=== PATIENT | female | born 1930 | race African-American/Black ===

== ENCOUNTER 2016-08-24 16:10 | Emergency (ER) | payer OTHER, MEDICARE, BC ==
[~2016-08-24] VITALS: Ht 167.6 cm; Wt 84.0 kg
[~2016-08-24 16:10] MED LIST: 1-ME1LIQ PO; DONE10TA14 PO; OMEP20TA39 PO; OXYB5TAB PO; TIMO0.5S4 OP; ZIPR20CA PO; ZOLO100T PO
[2016-08-24 16:15] VITALS: BP 202/94; PULSE 79; RESP 20; TEMP 98.7; O2SAT 99
--- NOTE | 2016-08-24 17:23 | PD ---
HPI Chief Complaint: Fall Time Seen by Provider: 17:10 Travel History International Travel<30 days: No Contact w/Intl Traveler<30days: No Traveled to known affect area: No History of Present Illness HPI 86-year-old female presents for evaluation after a fall. She reports that this morning she slipped out of bed and twisted her left ankle. She scooted across the room on her but after this. She denies any head trauma or loss of consciousness. A friend came to check on her and brought her to her primary care physician at the [facility] who sent her here for evaluation of left ankle pain. The pain is an aching pain in the lateral left foot and ankle which is constant and worse with movement. She does have some pain in both hips from scooting across the floor on her butt. Denies any chest pain, abdominal pain, right leg pain, back or neck pain. No other complaints. PFSH Past Medical History Arthritis: Yes Asthma: No Anxiety: Yes Depression: Yes Heart Rhythm Problems: No Cardiovascular Problems: Yes High Cholesterol: No Congestive Heart Failure: No COPD: Yes Cerebrovascular Accident: Yes Diabetes: No Gastrointestinal Disorders: Yes GERD: Yes Glaucoma: Yes Genitourinary: No Headaches: No Hypertension: Yes Kidney Stones: No Musculoskeletal: Yes (Chronic lower back) Neurologic: Yes (cognitive impairement) Parkinson's Disease: Yes Reproductive: No Respiratory: Yes Migraines: No Radiation Therapy: No Renal Failure: No Seizures: No Sickle Cell Disease: No Sleep Apnea: Yes Thyroid Disease: Yes Ulcer: No Menopausal: Yes Past Surgical History Abdominal Surgery: Yes (COLON RESECTION) Cardiac Surgery: No Ear Surgery: No Eye Surgery: No Gynecologic Surgery: Yes Hysterectomy: Yes Insulin Pump: No Joint Replacement: No Neurologic Surgery: No Oral Surgery: No Pacemaker: No Thoracic Surgery: No Tonsillectomy: Yes Other Surgery: Yes (HERNIA REPAIR, R BREAST BX) Social History Alcohol Use: Yes (OCCASIONAL WINE) Tobacco Use: No Substance Use: No Allergies-Medications (Allergen,Severity, Reaction): Coded Allergies: Novocain (Verified Allergy, Severe, 05/29/15) PT DENIES Reported Meds & Prescriptions Reported Meds & Active Scripts Active Reported Hm Omeprazole (Omeprazole) 20 Mg Tab 20 Mg PO DAILY Oxybutynin Chloride 5 Mg Tab 2.5 Mg PO DAILY Amlodipine Besylate 10 mg (Amlodipine Besylate) 10 Mg Tab 1 Tab PO DAILY Zoloft (Sertraline Hcl) 100 Mg Tab 100 Mg PO DAILY Donepezil 10 Mg Tab 10 Mg PO DAILY Ziprasidone Hcl 20 Mg Cap 20 Mg PO HS Timolol Maleate Ophthalmi (Timolol Maleate) 0.5 % Reema 0.5 % OP Review of Systems Except as stated in HPI: all other systems reviewed are Neg Physical Exam Narrative GENERAL: Pleasant well developed well-nourished female in no acute distress resting comfortably in chair. SKIN: Warm and dry. No bruising or soft tissue swelling HEAD: Atraumatic. Normocephalic. EYES: Pupils equal and round. No scleral icterus. No injection or drainage. ENT: No nasal bleeding or discharge. Mucous membranes pink and moist. NECK: Trachea midline. No JVD. CARDIOVASCULAR: Regular rate and rhythm. No murmur appreciated. RESPIRATORY: No accessory muscle use. Clear to auscultation. Breath sounds equal bilaterally. GASTROINTESTINAL: Abdomen soft, non-tender, nondistended. Hepatic and splenic margins not palpable. MUSCULOSKELETAL: No obvious deformities. Some tenderness to palpation to the lateral left ankle and foot. There is some pain with dorsi and plantar flexion of the left ankle. The patient has some pain with active flexion and of the hips bilaterally. No reproducible tenderness to palpation of the hips. No tenderness to palpation along the neck or back midline. Distal pulses are intact. NEUROLOGICAL: Awake and alert. No obvious cranial nerve deficits. Motor grossly within normal limits. Normal speech. Data Data Last Documented VS Vital Signs Date Time Temp Pulse Resp B/P Pulse Ox O2 Delivery O2 Flow Rate FiO2 08/24/16 16:15 98.7 79 20 202/94 99 Room Air Orders Ankle, Complete ([id number]) (08/24/16 ) Foot, Complete (Ter2nvw) (08/24/16 ) Pelvis, Ap Only (Routine) (08/24/16 ) Splint Or Brace Apply/Monitor (08/24/16 18:34) MDM Medical Decision Making Medical Screen Exam Complete: Yes Emergency Medical Condition: Yes Medical Record Reviewed: Yes Differential Diagnosis Lateral ankle sprain, avulsion fracture, fibular fracture, metatarsal fracture, contusion Narrative Course 86-year-old female with left ankle and foot pain after falling out of bed this morning. She has some pain in both hips from scooting herself across the floor. Pelvis x-ray, left ankle and foot x-ray will be obtained. X-ray imaging is negative for fracture or dislocation. Her pain in left ankle is localized to the lateral aspect and is consistent with a lateral ankle sprain. The patient is being discharged with an ankle stirrup splint. She reports that she typically goes out with a cane. She will be given a prescription for a walker because of her ankle sprain. Diagnosis Primary Impression: Left ankle sprain Qualified Code: S93.402A - Sprain of left ankle, unspecified ligament, initial encounter Additional Instructions: Ice pack several times a day today 15 minutes at a time to the affected ankle. Use walker as needed. Follow up in 2 weeks with primary care physician for recheck. Return for any emergent medical conditions. Med/Other Pt SpecificInfo: No Change to Meds, Orthopedic Instructions Scripts Walker/Adult/Folding 1 Mis Mis #1 EA .ROUTE DIRECTED Ref 0 Prov:Osman Bryan MD 08/24/16 Disposition: 01 DISCHARGE HOME Condition: Stable Alex Rodriguez Aug 24, 2016 17:22
[2016-08-24 17:25] VITALS: BP 178/84
--- NOTE | 2016-08-24 18:05 | RADRPT ---
EXAM DATE/TIME: 08/24/2016 17:51 [facility] COMPARISON: No previous studies available for comparison. INDICATIONS : Left pelvis pain after fall. MEDICAL HISTORY : None. SURGICAL HISTORY : None. ENCOUNTER: Initial ACUITY: 1 day PAIN SCORE: 8/10 LOCATION: Left pelvis. FINDINGS: A single frontal view of the pelvis demonstrates no evidence of fracture. The bony pelvic ring is in tact. Bony mineralization is normal. The soft tissues are intact.CONCLUSION: Intact pelvis. Luis E Serrano MD on August 24, 2016 at 18:04 Board Certified Radiologist. This report was verified electronically.
--- NOTE | 2016-08-24 18:07 | RADRPT ---
EXAM DATE/TIME: 08/24/2016 17:53 [facility] COMPARISON: No previous studies available for comparison. INDICATIONS : Left foot pain after fall. MEDICAL HISTORY : None. SURGICAL HISTORY : None. ENCOUNTER: Initial ACUITY: 1 day PAIN SCORE: 7/10 LOCATION: Left foot. FINDINGS: Bones of the left foot are intact. 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 There is a small heel spur. Small enthesophyte at distal Achilles also noted. CONCLUSION: Intact left foot. Luis E Serrano MD on August 24, 2016 at 18:04 Board Certified Radiologist. This report was verified electronically.
--- NOTE | 2016-08-24 18:07 | RADRPT ---
EXAM DATE/TIME: 08/24/2016 17:54 [facility] COMPARISON: No previous studies available for comparison. INDICATIONS : Left ankle pain after fall. MEDICAL HISTORY : None. SURGICAL HISTORY : None. ENCOUNTER: Initial ACUITY: 1 day PAIN SCORE: 8/10 LOCATION: Left ankle. FINDINGS: No acute fracture or subluxation seen in the left foot. There is lateral soft tissue swelling. No rad iopaque foreign body. CONCLUSION: Soft tissue swelling without fracture or subluxation of the left ankle. Luis E Serrano MD on August 24, 2016 at 18:05 Board Certified Radiologist. This report was verified electronically.
[2016-08-24] MEDS ORDERED: WALKER/ADULT/FO1 MIS ×2 (18:34→18:37)
== END 2016-08-24 18:45 | disposition home or self-care (01) ==
LOC: NETRI 16:10
DX: J44.9 Chronic obstructive pulmonary disease, unspecified (principal); I10 Essential (primary) hypertension; G20 Parkinson's disease; S93.402A Sprain of unspecified ligament of left ankle, initial encounter; W06.XXXA Fall from bed, initial encounter; Y93.89 Activity, other specified; Y92.003 Bedroom of unspecified non-institutional (private) residence as the place of occurrence of the external cause
CPT/HCPCS: 72170; 73610; 73630; 99283; L1906

== ENCOUNTER 2016-10-07 15:51 | Emergency (ER) | payer OTHER, MEDICARE, BC ==
[~2016-10-07] VITALS: Ht 170.2 cm; Wt 82.0 kg
[~2016-10-07 15:51] MED LIST changes: +WALKER/ADULT/FO1 MIS
[2016-10-07 15:53] VITALS: BP 190/86; PULSE 76; RESP 13; TEMP 98.3; O2SAT 98
[2016-10-07 15:55] VITALS: TEMP 97.8; O2SAT 100
[2016-10-07] MEDS ORDERED: ACETAMINOPHEN 325 MG TAB PO ONE (16:15)
--- NOTE | 2016-10-07 16:55 | RADRPT ---
EXAM DATE/TIME: 10/07/2016 16:22 [facility] COMPARISON: ANKLE LEFT COMPLETE ([id number]), August 24, 2016, 17:54. INDICATIONS : Fall. Left ankle pain. MEDICAL HISTORY : None. SURGICAL HISTORY : None. ENCOUNTER: Initial ACUITY: 1 day PAIN SCORE: 7/10 LOCATION: Left lateral FINDINGS: No definite fractures, or dislocations are identified. No definite lytic or sclerotic lesion is seen . Soft tissue swelling is identified. CONCLUSION: Soft tissue swelling and no definite fracture for technique. Campbell Solorzano MD on October 07, 2016 at 16:52 Board Certified Radiologist. This report was verified electronically.
--- NOTE | 2016-10-07 17:09 | PD ---
HPI Chief Complaint: Injury Time Seen by Provider: 15:59 Travel History International Travel<30 days: No Contact w/Intl Traveler<30days: No Traveled to known affect area: No History of Present Illness HPI Patient is an 86-year-old female comes in complaining of left ankle pain. She fell a month ago and she injured her ankle. She was seen at the emergency department where she had a negative x-ray. She says that she is still having pain, so she came in. She says she has been taking pain medicine. She denies any other symptoms. She says that she feels like her memory is worsening. She denies any new injuries. PFSH Past Medical History Arthritis: Yes Asthma: No Anxiety: Yes Depression: Yes Heart Rhythm Problems: No Cardiovascular Problems: Yes High Cholesterol: No Congestive Heart Failure: No COPD: Yes Cerebrovascular Accident: Yes Diabetes: No Gastrointestinal Disorders: Yes GERD: Yes Glaucoma: Yes Genitourinary: No Headaches: No Heparin Induced Thrombocytopen: No Hypertension: Yes Kidney Stones: No Musculoskeletal: Yes (Chronic lower back) Neurologic: Yes (cognitive impairement) Parkinson's Disease: Yes Reproductive: No Respiratory: Yes Migraines: No Radiation Therapy: No Renal Failure: No Seizures: No Sickle Cell Disease: No Sleep Apnea: Yes Thyroid Disease: Yes Ulcer: No Menopausal: Yes Past Surgical History Abdominal Surgery: Yes (COLON RESECTION) Cardiac Surgery: No Ear Surgery: No Eye Surgery: No Gynecologic Surgery: Yes Hysterectomy: Yes Insulin Pump: No Joint Replacement: No Neurologic Surgery: No Oral Surgery: No Pacemaker: No Thoracic Surgery: No Tonsillectomy: Yes Other Surgery: Yes (HERNIA REPAIR, R BREAST BX) Social History Alcohol Use: Yes (OCCASIONAL WINE) Tobacco Use: No Substance Use: No Allergies-Medications (Allergen,Severity, Reaction): Coded Allergies: Novocain (Verified Allergy, Severe, 05/29/15) PT DENIES Reported Meds & Prescriptions Reported Meds & Active Scripts Active Walker/Adult/Folding (Device) 1 Mis Mis 1 Ea .ROUTE DIRECTED Reported Hm Omeprazole (Omeprazole) 20 Mg Tab 20 Mg PO DAILY Oxybutynin Chloride Er (Oxybutynin Chloride) 5 Mg Tab 2.5 Mg PO DAILY 1-Methyl 2-Pyrrolidinone (1-Methyl 2-Pyrrolidone (Bulk)) 10 Mg Tab 1 Tab PO DAILY Zoloft (Sertraline Hcl) 100 Mg Tab 100 Mg PO DAILY Donepezil 10 mg 10 Mg Tab 10 Mg PO DAILY Ziprasidone Hcl 20 Mg Cap 20 Mg PO HS Timolol Maleate Ophthalmi (Timolol Maleate) 0.5 % Reema 0.5 % OP Review of Systems General / Constitutional: No: Fever, Chills HENT: No: Headaches, Lightheadedness Cardiovascular: No: Chest Pain or Discomfort Respiratory: No: Shortness of Breath Gastrointestinal: No: Nausea, Vomiting Musculoskeletal: Positive: Arthralgias, Pain Skin: No Rash, No Change in Pigmentation Neurologic: No: Weakness, Dizziness Physical Exam Narrative GENERAL: Awake and alert, in no acute distress. SKIN: Focused skin assessment warm/dry. HEAD: Atraumatic. Normocephalic. EYES: Pupils equal and round. No scleral icterus. ENT: Mucous membranes pink and moist. CARDIOVASCULAR: Regular rate and rhythm. No murmur appreciated. RESPIRATORY: No accessory muscle use. Clear to auscultation. Breath sounds equal bilaterally. MUSCULOSKELETAL: No obvious deformities. No clubbing. No cyanosis. Bilateral lower extremity edema. Full range of motion of the left ankle. Pedal pulses intact. No tenderness to palpation of the left ankle or foot. NEUROLOGICAL: Awake and alert, oriented 4. No obvious cranial nerve deficits. Motor grossly within normal limits. Normal speech. PSYCHIATRIC: Appropriate mood and affect; insight and judgment normal. Data Data Last Documented VS Vital Signs Date Time Temp Pulse Resp B/P Pulse Ox O2 Delivery O2 Flow Rate FiO2 10/07/16 16:31 88 18 98 Room Air 10/07/16 15:53 98.3 190/86 Orders Ankle, Complete ([id number]) (10/07/16 ) Acetaminophen (Tylenol) (10/07/16 16:15) ^ Nathan Bandage (10/07/16 17:04) MDM Medical Decision Making Medical Screen Exam Complete: Yes Emergency Medical Condition: Yes Medical Record Reviewed: Yes Differential Diagnosis Ankle fracture versus ankle sprain versus arthritis Narrative Course Patient is an 86-year-old female comes in complaining of left ankle pain. Exam shows swelling of both lower extremities. X-ray performed of the left ankle, shows no acute abnormalities. [facility] to evaluate her ligaments. Given Tylenol for pain. Given Nathan wrap for comfort. Patient lives on her own, but she is awake and alert oriented to person, place, time. She says she feels safe at home and is able to obtain food and water for herself. She has no other concerns at this time. Will be discharged home. Advised to take Tylenol as needed for pain. Advised to return to the ED as needed for any worsening symptoms. Diagnosis Primary Impression: Left ankle sprain Qualified Code: S93.402D - Sprain of left ankle, unspecified ligament, subsequent encounter Patient Instructions: Ankle Strain (ED), General Instructions Additional Instructions: Take Tylenol as needed for pain. You can wear the Nathan Bandage for comfort. Follow up with your primary doctor. Return to the ED as needed for any worsening symptoms. Disposition: 01 DISCHARGE HOME Condition: Stable Enriqueta Shepherd MD Oct 07, 2016 17:09
== END 2016-10-07 17:09 | disposition home or self-care (01) ==
LOC: NEPD 15:51
DX: S93.402D Sprain of unspecified ligament of left ankle, subsequent encounter (principal); I10 Essential (primary) hypertension; E07.9 Disorder of thyroid, unspecified; G20 Parkinson's disease; W19.XXXD Unspecified fall, subsequent encounter; Z87.39 Personal history of other diseases of the musculoskeletal system and connective tissue; Z86.59 Personal history of other mental and behavioral disorders; Z86.79 Personal history of other diseases of the circulatory system; Z87.09 Personal history of other diseases of the respiratory system; Z87.19 Personal history of other diseases of the digestive system; Z86.69 Personal history of other diseases of the nervous system and sense organs
CPT/HCPCS: 73610; 99283

== ENCOUNTER 2016-10-31 08:15 | Emergency (ER) | payer MEDICARE, BC ==
[~2016-10-31] VITALS: Ht 170.2 cm; Wt 65.0 kg
[2016-10-31 08:16] VITALS: BP 184/94; PULSE 84; RESP 16; TEMP 98.3; O2SAT 99
--- NOTE | 2016-10-31 09:49 | RADRPT ---
EXAM DATE/TIME: 10/31/2016 09:34 [facility] COMPARISON: FOOT LEFT COMPLETE ([id number]), August 24, 2016, 17:53. INDICATIONS : Twisted ankle 2 weeks ago, pain 3-4 toes. MEDICAL HISTORY : None. SURGICAL HISTORY : None. ENCOUNTER: Initial ACUITY: 2 weeks PAIN SCORE: 9/10 LOCATION: Left foot FINDINGS: 3 views of the left foot demonstrate no fracture or dislocation. There is joint space narrowing and o steophytes at the first metatarsophalangeal joint. Lisfranc joint appears intact. There are small ent hesophytes at the posterior and plantar aspect of the calcaneus. No soft tissue abnormality or radiop aque foreign body is identified. CONCLUSION: No acute left foot abnormality is identified. 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 Luis E Reynaga MD on October 31, 2016 at 9:44 Board Certified Radiologist. This report was verified electronically.
--- NOTE | 2016-10-31 09:54 | PD ---
HPI Chief Complaint: Pain: Acute or Chronic Time Seen by Provider: 09:19 Travel History International Travel<30 days: No Contact w/Intl Traveler<30days: No History of Present Illness HPI 86-year-old female here with complaint of left fourth toe pain. Patient states that she has had gradual onset of pain in the left fourth toe for the last 3-4 days. This is made worse with movement. She denies any trauma to the toe, but does note recently that she sprained her left ankle. Patient notes some swelling of the left ankle since this. She denies any redness, open wounds, fevers or chills. PFSH Past Medical History Arthritis: Yes Asthma: No Anxiety: Yes Depression: Yes Heart Rhythm Problems: No Cardiovascular Problems: Yes High Cholesterol: No Congestive Heart Failure: No COPD: Yes Cerebrovascular Accident: Yes Diabetes: No Diminished Hearing: No Gastrointestinal Disorders: Yes GERD: Yes Glaucoma: Yes Genitourinary: No Headaches: No Heparin Induced Thrombocytopen: No Hypertension: Yes Kidney Stones: No Musculoskeletal: Yes (Chronic lower back) Neurologic: Yes (cognitive impairement) Parkinson's Disease: Yes Reproductive: No Respiratory: Yes Immunizations Current: No Migraines: No Radiation Therapy: No Renal Failure: No Seizures: No Sickle Cell Disease: No Sleep Apnea: Yes Thyroid Disease: Yes Ulcer: No Tetanus Vaccination: < 5 Years Influenza Vaccination: Yes ?: Not Menopausal: Yes Past Surgical History Abdominal Surgery: Yes (COLON RESECTION) Cardiac Surgery: No Ear Surgery: No Eye Surgery: No Gynecologic Surgery: Yes Hysterectomy: Yes Insulin Pump: No Joint Replacement: No Neurologic Surgery: No Oral Surgery: No Pacemaker: No Thoracic Surgery: No Tonsillectomy: Yes Other Surgery: Yes (HERNIA REPAIR, R BREAST BX) Social History Alcohol Use: Yes (OCCASIONAL WINE) Tobacco Use: No Substance Use: No Allergies-Medications (Allergen,Severity, Reaction): Coded Allergies: Novocain (Verified Allergy, Severe, 10/31/16) PT DENIES Reported Meds & Prescriptions Reported Meds & Active Scripts Active Reported Naproxen 375 Mg Tab 375 Mg PO BID Meloxicam 7.5 Mg Tab 7.5 Mg PO DAILY Review of Systems Except as stated in HPI: all other systems reviewed are Neg Physical Exam Narrative GENERAL: Well-appearing elderly female in no acute distress SKIN: Focused skin assessment warm/dry. HEAD: Normocephalic. EYES: No scleral icterus. No injection or drainage. ENT: No nasal bleeding or discharge. Mucous membranes pink and moist. NECK: Trachea midline. No JVD. CARDIOVASCULAR: Regular rate and rhythm. Hypertensive. Good distal pulses in all 4 extremities. RESPIRATORY: No accessory muscle use. MUSCULOSKELETAL: Left lower extremity with swelling around the ankle, foot that extends into the mid calf. 1+ on the left and trace on the right. Distal sensation, pulses are intact. Good distal capillary refill. There is no obvious trauma or deformity to the left fourth toe, however patient does have pain with range of motion. She is able ambulate without any difficulty. NEUROLOGICAL: Awake and alert. Normal speech. PSYCHIATRIC: Appropriate mood and affect; insight and judgment normal. Data Data Last Documented VS Vital Signs Date Time Temp Pulse Resp B/P Pulse Ox O2 Delivery O2 Flow Rate FiO2 10/31/16 10:07 58 174/79 10/31/16 10:06 18 98 Room Air 10/31/16 08:16 98.3 Orders Foot, Complete ([id number]) (10/31/16 ) Us Leg Venous Doppler (10/31/16 ) [facility] Medical Decision Making Medical Screen Exam Complete: Yes Emergency Medical Condition: Yes Medical Record Reviewed: Yes Differential Diagnosis 86-year-old female here with 3-4 days of pain in the left fourth toe. On exam patient does have swelling around the ankle, foot but this does extend into the calf. Reportedly recently had an ankle sprain but given the superior edema, will obtain duplex ultrasound to rule out DVT. The toe has excellent capillary refill, sensation and my suspicion for significant peripheral vascular disease is low. She does have pain with recent trauma, fracture is on the differential. Narrative Course X-ray of the left foot shows osteoarthritis at the first MTP joint but otherwise unremarkable. Duplex ultrasound the left lower extremity showed no evidence of DVT. Patient denies any history of gout and her exam is unremarkable. She was reassured and will be discharged home. Diagnosis Primary Impression: Sprain of fourth toe, left Qualified Code: S93.505A - Sprain of fourth toe, left, initial encounter Referrals: Primary Care Physician as needed Additional Instructions: Tylenol as needed for pain. X-ray of the foot was normal without any evidence of trauma to the toe. Ultrasound was normal without DVT. Follow-up with primary care provider symptoms persist. Med/Other Pt SpecificInfo: No Change to Meds Disposition: 01 DISCHARGE HOME Condition: Stable Rosangela Lanier MD October 31, 2016 09:54
[2016-10-31 10:06] VITALS: BP 197/79; PULSE 57; RESP 18; O2SAT 98
[2016-10-31 10:07] VITALS: BP 174/79; PULSE 58
[2016-10-31] MEDS ORDERED: NAPR375T PO (10:09)
[2016-10-31] MEDS ORDERED: MELO7.5T4 PO (10:09)
--- NOTE | 2016-10-31 10:19 | RADRPT ---
EXAM DATE/TIME: 10/31/2016 09:42 [facility] COMPARISON: No previous studies available for comparison. INDICATIONS : Left leg edema. MEDICAL HISTORY : Parkinson's. Hypertension. Chronic obstructive pulmonary disease. Thyroid disease. Glaucoma. CVA. Sleep apnea. GERD. Arthritis. SURGICAL HISTORY : Hysterectomy. Tonsillectomy. Colon resection. Right breast biopsy. ENCOUNTER: Initial ACUITY: 2 weeks PAIN SCORE: 0/10 LOCATION: Left leg. TECHNIQUE: Venous ultrasound of the leg was performed from the inguinal ligament to the proximal calf. Real-jose r e, color Doppler and spectral tracing, compression and augmentation techniques were used. FINDINGS: There is normal compressibility of the deep venous system from the inguinal region to the proximal ca lf. No echogenic clot is seen in the lumen of the common femoral, femoral, popliteal, and posterior tibial veins. There is a normal response of the venous system to proximal and distal augmentation an d respiration. CONCLUSION: There is no DVT in the left lower extremity. Luis E Reynaga MD on October 31, 2016 at 10:17 Board Certified Radiologist. This report was verified electronically.
== END 2016-10-31 10:45 | disposition home or self-care (01) ==
LOC: NEPD 08:15
DX: S93.505A Unspecified sprain of left lesser toe(s), initial encounter (principal); I10 Essential (primary) hypertension; G20 Parkinson's disease; E07.9 Disorder of thyroid, unspecified; G47.30 Sleep apnea, unspecified; X58.XXXA Exposure to other specified factors, initial encounter; Z87.39 Personal history of other diseases of the musculoskeletal system and connective tissue; Z86.59 Personal history of other mental and behavioral disorders; Z86.79 Personal history of other diseases of the circulatory system; Z87.09 Personal history of other diseases of the respiratory system; Z87.19 Personal history of other diseases of the digestive system; Z86.69 Personal history of other diseases of the nervous system and sense organs
CPT/HCPCS: 73630; 93971; 99284

== ENCOUNTER 2017-01-06 13:47 | Emergency (ER) | payer MEDICARE, BC ==
[~2017-01-06] VITALS: Ht 170.2 cm; Wt 60.0 kg
[~2017-01-06 13:47] MED LIST changes: -1-ME1LIQ PO; -DONE10TA14 PO; +MELO7.5T4 PO; +NAPR375T PO; -OMEP20TA39 PO; -OXYB5TAB PO; -TIMO0.5S4 OP; -WALKER/ADULT/FO1 MIS; -ZIPR20CA PO; -ZOLO100T PO
[2017-01-06 13:57] VITALS: PULSE 63; RESP 27; TEMP 97.3; O2SAT 98
[2017-01-06 14:05] VITALS: BP 237/101; PULSE 68; RESP 16; O2SAT 98
[2017-01-06 14:14] VITALS: O2SAT 98
[2017-01-06] MEDS ORDERED: SODIUM CHLORIDE 0.9% FLUSH 5 ML FLUSH IV FLUSH PRN (14:15)
[2017-01-06] MEDS ORDERED: DONE10TA7 PO (14:18)
[2017-01-06] MEDS ORDERED: OMEP20TA PO (14:18)
[2017-01-06] MEDS ORDERED: OXYB5TAB10 PO (14:18)
[2017-01-06] MEDS ORDERED: ZIPR1CAP6 PO (14:18)
[2017-01-06] MEDS ORDERED: AMLO5TAB2 PO (14:18)
[2017-01-06] MEDS ORDERED: GABA100C4 PO (14:18)
[2017-01-06] MEDS ORDERED: GALA8TAB PO (14:18)
--- NOTE | 2017-01-06 14:54 | RADRPT ---
EXAM DATE/TIME: 01/06/2017 14:17 [facility] COMPARISON: CT BRAIN W/O CONTRAST, May 29, 2015, 14:25. INDICATIONS : Altered mental status today, confusion. RADIATION DOSE: 56.35 CTDIvol (mGy) MEDICAL HISTORY : Hypertension. Parkinson's. SURGICAL HISTORY : Thyroidectomy. Tonsillectomy. ENCOUNTER: Initial ACUITY: 1 day PAIN SCALE: 10/10 LOCATION: Cranial TECHNIQUE: Multiple contiguous axial images were obtained of the head. Using automated exposure control and adj ustment of the mA and/or kV according to patient size, radiation dose was kept as low as reasonably a chievable to obtain optimal diagnostic quality images. DICOM format image data is available electro nically for review and comparison. FINDINGS: Stable central cerebral atrophy is noted. Mild periventricular white matter small vessel ischemic ch anges are noted bilaterally. There are old tiny lacunar infarcts within the bilateral basal ganglia. There is no acute hemorrhage, midline shift or extra-axial fluid collections. No acute infarction is noted. CONCLUSION: 1. Stable central cerebral atrophy. 2. Mild periventricular white matter small vessel ischemic changes bilaterally. 3. 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 4. No acute infarct, acute hemorrhage, mass effect or extra-axial fluid collections. Jagdeep Wen MD on January 06, 2017 at 14:44 Board Certified Radiologist. This report was verified electronically.
--- NOTE | 2017-01-06 14:59 | RADRPT ---
EXAM DATE/TIME: 01/06/2017 14:35 [facility] COMPARISON: CHEST SINGLE AP, January 04, 2014, 20:16. INDICATIONS : Syncopal episode MEDICAL HISTORY : Parkinson's. Hypertension. Chronic obstructive pulmonary disease. Thyroid disease. Glaucoma. CVA. Sle ep apnea. GERD. Arthritis SURGICAL HISTORY : Hysterectomy. Tonsillectomy. Colon resection. Right breast biopsy. ENCOUNTER: Initial ACUITY: 1 day PAIN SCORE: 0/10 LOCATION: Bilateral chest FINDINGS: The heart is mildly prominent. Minimal central pulmonary vascular congestion is noted. Degenerative changes are noted throughout the thoracic spine. CONCLUSION: 1. Mild cardiomegaly. 2. Minimal central pulmonary vascular congestion. 3. Degenerative changes throughout the thoracic spine. Jagdeep Wen MD on January 06, 2017 at 14:56 Board Certified Radiologist. This report was verified electronically.
--- NOTE | 2017-01-06 15:13 | PD ---
HPI Chief Complaint: Fall Time Seen by Provider: 14:11 Travel History International Travel<30 days: No Contact w/Intl Traveler<30days: No Traveled to known affect area: No History of Present Illness HPI The patient is 86 years old. She arrives by EMS from home. She was found on the floor by her neighbor. The patient has dementia however is reported to be more confused than normal. At the time of her view the patient has no pain or medical complaint specifically. She does not recall the details of the morning preceding her fall. She states yesterday was a normal day for her. Of note she is AO 3 however reports she "might have some dementia." Her neighbor Nhung Echols was called on her cell phone and home phone number however there was no answer. PFSH Past Medical History Arthritis: Yes Asthma: No Anxiety: Yes Depression: Yes Heart Rhythm Problems: No Cardiovascular Problems: Yes High Cholesterol: No Congestive Heart Failure: No COPD: Yes Cerebrovascular Accident: Yes Dementia: Yes Diabetes: No Diminished Hearing: No Gastrointestinal Disorders: Yes GERD: Yes Glaucoma: Yes Genitourinary: No Headaches: No Heparin Induced Thrombocytopen: No Hypertension: Yes Kidney Stones: No Musculoskeletal: Yes (Chronic lower back) Neurologic: Yes (cognitive impairement) Parkinson's Disease: Yes Reproductive: No Respiratory: Yes Immunizations Current: No Migraines: No Radiation Therapy: No Renal Failure: No Seizures: No Sickle Cell Disease: No Sleep Apnea: Yes Thyroid Disease: Yes Ulcer: No Menopausal: Yes Past Surgical History Abdominal Surgery: Yes (COLON RESECTION) Cardiac Surgery: No Ear Surgery: No Eye Surgery: No Gynecologic Surgery: Yes Hysterectomy: Yes Insulin Pump: No Joint Replacement: No Neurologic Surgery: No Oral Surgery: No Pacemaker: No Thoracic Surgery: No Tonsillectomy: Yes Other Surgery: Yes (HERNIA REPAIR, R BREAST BX) Social History Alcohol Use: Yes (OCCASIONAL WINE) Tobacco Use: No Substance Use: No Allergies-Medications (Allergen,Severity, Reaction): Coded Allergies: Novocain (Verified Allergy, Severe, 01/06/17) PT DENIES Reported Meds & Prescriptions Reported Meds & Active Scripts Active Reported Omeprazole 20 Mg Tab 20 Mg PO DAILY Donepezil 10 Mg Tab 10 Mg PO HS Ziprasidone 20 Mg Cap 20 Mg PO DAILY Galantamine (Galantamine Hydrobromide) 8 Mg Tab 8 Mg PO BID Ditropan (Oxybutynin Chloride) 5 Mg Tab 5 Mg PO DAILY Amlodipine (Amlodipine Besylate) 5 Mg Tab 5 Mg PO DAILY Gabapentin 100 Mg Cap 100 Mg PO HS Review of Systems Except as stated in HPI: all other systems reviewed are Neg Physical Exam Narrative GENERAL: Well-nourished well-developed pleasant 86-year-old female no acute distress, alert and oriented 3 SKIN: Warm and dry. HEAD: Atraumatic. Normocephalic. EYES: Pupils equal and round. No scleral icterus. No injection or drainage. ENT: No nasal bleeding or discharge. Mucous membranes pink and moist. NECK: Trachea midline. No JVD. CARDIOVASCULAR: Regular rate and rhythm. RESPIRATORY: No accessory muscle use. Clear to auscultation. Breath sounds equal bilaterally. GASTROINTESTINAL: Abdomen soft, non-tender, nondistended. Hepatic and splenic margins not palpable. MUSCULOSKELETAL: Extremities without clubbing, cyanosis, or edema. No obvious deformities. NEUROLOGICAL: Awake and alert. No obvious cranial nerve deficits. Motor grossly within normal limits. Five out of 5 muscle strength in the arms and legs. Normal speech. PSYCHIATRIC: Appropriate mood and affect; insight and judgment normal. Data Data Last Documented VS Vital Signs Date Time Temp Pulse Resp B/P Pulse Ox O2 Delivery O2 Flow Rate FiO2 01/06/17 14:14 98 Room Air 01/06/17 14:05 68 16 01/06/17 13:57 97.3 Vital signs reviewed blood pressure is 195/83 at 4:50 PM Orders Electrocardiogram (01/06/17 14:11) Ammonia (01/06/17 14:11) Complete Blood Count With Diff (01/06/17 14:11) Comprehensive Metabolic Panel (01/06/17 14:11) Creatine Kinase (Cpk) (01/06/17 14:11) Troponin I (01/06/17 14:11) Urinalysis - C+S If Indicated (01/06/17 14:11) Chest, Single Ap (01/06/17 14:11) Ct Brain W/O Iv Contrast(Rout) (01/06/17 14:11) Blood Glucose (01/06/17 14:11) Ecg Monitoring (01/06/17 14:11) Iv Access Insert/Monitor (01/06/17 14:11) Oximetry (01/06/17 14:11) Sodium Chloride 0.9% Flush (Ns Flush) (01/06/17 14:15) Drug Screen, Random Urine (01/06/17 14:11) Alcohol (Ethanol) (01/06/17 14:11) CKMB (01/06/17 15:30) CKMB% (01/06/17 15:30) Potassium Chloride (Kcl) (01/06/17 17:30) Labs Laboratory Tests Test 01/06/17 01/06/17 01/06/17 15:10 15:30 15:35 Urine Color LIGHT-YELLOW Urine Turbidity CLEAR Urine pH 7.0 Urine Specific [place] 1.008 Urine Protein NEG mg/dL Urine Glucose (UA) 70 mg/dL Urine Ketones 40 mg/dL Urine Occult Blood TRACE Urine Nitrite NEG Urine Bilirubin NEG Urine Urobilinogen LESS THAN 2.0 MG/DL Urine Leukocyte Esterase NEG Urine RBC LESS THAN 1 /hpf Urine WBC LESS THAN 1 /hpf Urine Squamous Epithelial <1 /hpf Cells Microscopic Urinalysis Comment CATH-CULT NOT IND Urine Opiates Screen NEG Urine Barbiturates Screen NEG Urine Amphetamines Screen NEG Urine Benzodiazepines Screen NEG Urine Cocaine Screen NEG Urine Cannabinoids Screen NEG Sodium Level 138 MEQ/L Potassium Level 3.0 MEQ/L Chloride Level 102 MEQ/L Carbon Dioxide Level 26.3 MEQ/L Anion Gap 10 MEQ/L Blood Urea Nitrogen 9 MG/DL Creatinine 0.69 MG/DL Estimat Glomerular Filtration 97 ML/MIN Rate Random Glucose 110 MG/DL Calcium Level 8.4 MG/DL Total Bilirubin 1.4 MG/DL Aspartate Amino Transf 27 U/L (AST/SGOT) Alanine Aminotransferase 22 U/L (ALT/SGPT) Alkaline Phosphatase 83 U/L Ammonia 34 MCMOL/L Total Creatine Kinase 776 U/L Creatine Kinase MB 6.2 NG/ML Creatine Kinase MB % 0.8 % Troponin I LESS THAN 0.02 NG/ML Total Protein 7.9 GM/DL Albumin 3.6 GM/DL Ethyl Alcohol Level LESS THAN 3 MG/DL White Blood Count 9.8 TH/MM3 Red Blood Count 4.24 MIL/MM3 Hemoglobin 13.2 GM/DL Hematocrit 38.0 % Mean Corpuscular Volume 89.7 FL Mean Corpuscular Hemoglobin 31.2 PG Mean Corpuscular Hemoglobin 34.8 % Concent Red Cell Distribution Width 13.2 % Platelet Count 215 TH/MM3 Mean Platelet Volume 8.0 FL Neutrophils (%) (Auto) 89.1 % Lymphocytes (%) (Auto) 7.7 % Monocytes (%) (Auto) 2.8 % Eosinophils (%) (Auto) 0.1 % Basophils (%) (Auto) 0.3 % Neutrophils # (Auto) 8.8 TH/MM3 Lymphocytes # (Auto) 0.8 TH/MM3 Monocytes # (Auto) 0.3 TH/MM3 Eosinophils # (Auto) 0.0 TH/MM3 Basophils # (Auto) 0.0 TH/MM3 CBC Comment DIFF FINAL Differential Comment MDM Medical Decision Making Medical Screen Exam Complete: Yes Emergency Medical Condition: Yes Medical Record Reviewed: Yes Differential Diagnosis Infection, intracranial injury, stroke, electrolyte balance, renal failure, polypharmacy, dementia, rhabdomyolysis Narrative Course CBC & BMP Diagram 01/06/17 15:30 01/06/17 15:35 Ammonia 34 Total creatinine kinase 776 Troponin less than 0.02 EKG reveals a sinus rhythm a rate of 68 T-wave inversions in the precordial leads appear stable in comparison to 2013 Last [address] 01/06/17 1411 Signed Impressions: Service Date/Time: Friday, January 06, 2017 14:17 - CONCLUSION: 1. Stable central cerebral atrophy. 2. Mild periventricular white matter small vessel ischemic changes bilaterally. 3. 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 4. No acute infarct, acute hemorrhage, mass effect or extra-axial fluid collections. Jagdeep Wen MD Chest X-Ray 01/06/171410 Signed Impressions: Service Date/Time: Friday, January 06, 2017 14:35 - CONCLUSION: 1. Mild cardiomegaly. 2. Minimal central pulmonary vascular congestion. 3. Degenerative changes throughout the thoracic spine. Jagdeep Wen MD Pt's friend Nhung Lopez arrived to the ER and states that she will check on the patient tonight and tomorrow. On Sunday, the day after tomorrow, the patient has a visiting RN scheduled that she does every weekday. In this scenario we will send the patient home since she has close follow-up and friends available. She states she falls with the [place] [facility] and can schedule an appointment on Sunday. Diagnosis Primary Impression: Fall Qualified Code: W19.XXXA - Fall, initial encounter Additional Impression: Hypokalemia Referrals: [facility] 2 days Additional Instructions: You have a choice when it comes to health care, and we are glad that you chose [facility]. Hopefully, we have met your expectations on today's visit. You are welcome to return to [facility] at any time, as we are committed to meeting the health care needs of our community. Med/Other Pt SpecificInfo: No Change to Meds Disposition: 01 DISCHARGE HOME Condition: Stable Deon Leo MD Jan 06, 2017 15:13
[2017-01-06 15:49] LABS: AUTOMATED NEUTROPHIL # 8.8 TH/MM3 (1.8-7.7); BASOPHIL % 0.3 % (0.0-2.0); EOSINOPHIL % 0.1 % (0.0-4.0); HEMO FLAGS DIFF FINAL; LYMPH % 7.7 % (9.0-44.0); LYMPHOCYTE # 0.8 TH/MM3 (1.0-4.8); MEAN CELL VOLUME 89.7 FL (80.0-100.0); MEAN CORPUSCULAR HEMOGLOBIN 31.2 PG (27.0-34.0); MEAN CORPUSCULAR HGB CONC 34.8 % (32.0-36.0); MONO % 2.8 % (0.0-8.0); NEUT % 89.1 % (16.0-70.0); PLATELET COUNT 215 TH/MM3 (150-450); RED BLOOD COUNT 4.24 MIL/MM3 (4.00-5.30); RED CELL DISTRIBUTION WIDTH 13.2 % (11.6-17.2); WHITE BLOOD COUNT 9.8 TH/MM3 (4.0-11.0)
[2017-01-06 16:10] LABS: BLOOD, URINE TRACE (NEG); GLUCOSE,URINE 70 mg/dL (NEG); KETONE, URINE 40 mg/dL (NEG); NITRITE,URINE NEG (NEG); SQUAMOUS EPITHELIAL CELL URINE <1 /hpf (0-5); URINE COLOR LIGHT-YELLOW (YELLW/STRAW)
[2017-01-06 16:14] LABS: COMMENT (UR) CATH-CULT NOT IND; CULTURE IF INDICATED CATH CULTURE NOT IND
[2017-01-06 16:16] LABS: AMPHETAMINE, URINE NEG (NEG); BARBITURATES, URINE NEG (NEG); COCAINE, URINE NEG (NEG)
[2017-01-06 16:22] LABS: ALT (GPT) 22 U/L (10-53); ANION GAP 10 MEQ/L (5-15); AST (GOT) 27 U/L (15-37); BICARBONATE 26.3 MEQ/L (21.0-32.0); BLOOD UREA NITROGEN 9 MG/DL (7-18); CHLORIDE 102 MEQ/L (98-107); GLOMERULAR FILTRATION RATE 97 ML/MIN (>89); SODIUM (NA) 138 MEQ/L (136-145)
[2017-01-06 16:26] LABS: ALKALINE PHOSPHATASE 83 U/L (45-117); CREATINE KINASE 776 U/L (26-192); TOTAL BILIRUBIN ADULT 1.4 MG/DL (0.2-1.0)
[2017-01-06 16:39] LABS: CKMB 6.2 NG/ML (0.5-3.6)
[2017-01-06] MEDS ORDERED: POTASSIUM CHLORIDE 20 MEQ CONTROLLED RELEASE TAB PO ONE (17:30)
--- NOTE | 2017-01-07 16:00 | EKG ---
Date Performed: 01/06/2017 Time Performed: 13:59:27 PTAGE: 86 years EKG: LVH ST-T changes probably due to LVH Since previous tracing, no significant change noted AB NORMAL ECG PREVIOUS TRACING : 01/05/2014 02.08 DOCTOR: Luke Causey Interpretating Date/Time 01/07/2017 15:59:51
== END 2017-01-06 18:40 | disposition home or self-care (01) ==
LOC: NEPE 13:47
DX: E87.6 Hypokalemia (principal); I51.7 Cardiomegaly; R94.31 Abnormal electrocardiogram [ECG] [EKG]; J44.9 Chronic obstructive pulmonary disease, unspecified; I10 Essential (primary) hypertension; G20 Parkinson's disease; F02.80 Dementia in other diseases classified elsewhere, unspecified severity, without behavioral disturbance, psychotic disturbance, mood disturbance, and anxiety; E07.9 Disorder of thyroid, unspecified; K21.9 Gastro-esophageal reflux disease without esophagitis
CPT/HCPCS: 70450; 71010; 80053; 80307; 81001; 82140; 82550; 82552; 84484; 85025; 93005; 99285

== ENCOUNTER 2017-01-10 08:52 | Emergency (ER) | payer MEDICARE, BC, OTHER ==
[~2017-01-10] VITALS: Ht 170.2 cm; Wt 90.0 kg
[~2017-01-10 08:52] MED LIST changes: +AMLO5TAB2 PO; +DONE10TA7 PO; +GABA100C4 PO; +GALA8TAB PO; -MELO7.5T4 PO; -NAPR375T PO; +OMEP20TA PO; +OXYB5TAB10 PO; +ZIPR1CAP6 PO
[2017-01-10 08:59] VITALS: BP 226/95; PULSE 65; RESP 15; TEMP 98.7; O2SAT 97
--- NOTE | 2017-01-10 09:26 | PD ---
HPI Chief Complaint: Fall Time Seen by Provider: 09:03 Travel History International Travel<30 days: No Contact w/Intl Traveler<30days: No Traveled to known affect area: No History of Present Illness HPI 86yo F presents to the ED for evaluation after fall today. Pt has a aid that comes from 8:30am-11:30am and she found her lying on the fall at 7:50am today unable to get up or open the door for her. Pt states she fell from chair but unable to tell me exactly what happened. She is AAOx3 but has questionable dementia. Denies any head trauma, LOC, chest pain, sob, n/v, abdominal pain, focal weakness or numbness. Pt states she has lower back pain when she moves her legs. Pt is suppose to use a walker and cane but has not been. She also lives alone and has not been taking her medications. She was just here at [facility] for evaluation of fall on 01/06/17 and the aid states she has frequent falls. PFSH Past Medical History Arthritis: Yes Asthma: No Anxiety: Yes Depression: Yes Heart Rhythm Problems: No Cardiovascular Problems: Yes (htn) High Cholesterol: No Congestive Heart Failure: No COPD: Yes Cerebrovascular Accident: Yes Dementia: Yes Diabetes: No Diminished Hearing: No Gastrointestinal Disorders: Yes GERD: Yes Glaucoma: Yes Genitourinary: No Headaches: No Heparin Induced Thrombocytopen: No Hypertension: Yes Kidney Stones: No Musculoskeletal: Yes (Chronic lower back) Neurologic: Yes (cognitive impairement) Parkinson's Disease: Yes Reproductive: No Respiratory: Yes Immunizations Current: No Migraines: No Radiation Therapy: No Renal Failure: No Seizures: No Sickle Cell Disease: No Sleep Apnea: Yes Thyroid Disease: Yes Ulcer: No Menopausal: Yes Past Surgical History Abdominal Surgery: Yes (COLON RESECTION) Cardiac Surgery: No Ear Surgery: No Eye Surgery: No Gynecologic Surgery: Yes Hysterectomy: Yes Insulin Pump: No Joint Replacement: No Neurologic Surgery: No Oral Surgery: No Pacemaker: No Thoracic Surgery: No Tonsillectomy: Yes Other Surgery: Yes (HERNIA REPAIR, R BREAST BX) Social History Alcohol Use: Yes (OCCASIONAL WINE) Tobacco Use: No Substance Use: No Allergies-Medications (Allergen,Severity, Reaction): Coded Allergies: Novocain (Verified Allergy, Severe, 01/06/17) PT DENIES Reported Meds & Prescriptions Reported Meds & Active Scripts Active Reported Omeprazole 20 Mg Tab 20 Mg PO DAILY Donepezil 10 Mg Tab 10 Mg PO HS Ziprasidone 20 Mg Cap 20 Mg PO DAILY Galantamine (Galantamine Hydrobromide) 8 Mg Tab 8 Mg PO BID Ditropan (Oxybutynin Chloride) 5 Mg Tab 5 Mg PO DAILY Amlodipine (Amlodipine Besylate) 5 Mg Tab 5 Mg PO DAILY Gabapentin 100 Mg Cap 100 Mg PO HS Review of Systems Except as stated in HPI: all other systems reviewed are Neg Physical Exam Narrative GENERAL: 86yoF not in distress. SKIN: Focused skin assessment warm/dry. HEAD: Atraumatic. Normocephalic. EYES: Pupils equal and round. EOMI. No scleral icterus. No injection or drainage. ENT: No nasal bleeding or discharge. Mucous membranes pink and moist. NECK: No midline cervical spine ttp. CARDIOVASCULAR: Regular rate and rhythm. No murmur appreciated. RESPIRATORY: No accessory muscle use. Clear to auscultation. Breath sounds equal bilaterally. GASTROINTESTINAL: Abdomen soft, non-tender, nondistended. BACK: No midline thoracic or lumbar ttp. MUSCULOSKELETAL: No obvious deformities. No clubbing. No cyanosis. No edema. NEUROLOGICAL: Awake and alert. No obvious cranial nerve deficits. Motor grossly within normal limits. Sensation intact and equal bilaterally. Normal speech. PSYCHIATRIC: Appropriate mood and affect; insight and judgment normal. Data Data Last Documented VS Vital Signs Date Time Temp Pulse Resp B/P Pulse Ox O2 Delivery O2 Flow Rate FiO2 01/10/17 11:40 101 17 180/84 99 Room Air 01/10/17 08:59 98.7 Orders Complete Blood Count With Diff (01/10/17 09:18) Basic Metabolic Panel (Bmp) (01/10/17 09:18) Creatine Kinase (Cpk) (01/10/17 09:18) Spine, Lumbar - Ltd (Ap & Lat) (01/10/17 ) Hydralazine Inj (Apresoline Inj) (01/10/17 09:30) Urinalysis - C+S If Indicated (01/10/17 09:26) CKMB (01/10/17 09:45) CKMB% (01/10/17 09:45) Sodium Chlorid 0.9% 500 Ml Inj (Ns 500 M (01/10/17 10:30) Potassium Chloride (Kcl) (01/10/17 11:15) Electrocardiogram (01/10/17 09:17) Diet 1800 Ada Cons Carb (01/10/17 Lunch) Labs Laboratory Tests Test 01/10/17 01/10/17 09:45 10:00 White Blood Count 5.9 TH/MM3 Red Blood Count 4.30 MIL/MM3 Hemoglobin 12.8 GM/DL Hematocrit 39.6 % Mean Corpuscular Volume 92.1 FL Mean Corpuscular Hemoglobin 29.7 PG Mean Corpuscular Hemoglobin 32.3 % Concent Red Cell Distribution Width 13.2 % Platelet Count 237 TH/MM3 Mean Platelet Volume 7.5 FL Neutrophils (%) (Auto) 69.4 % Lymphocytes (%) (Auto) 20.3 % Monocytes (%) (Auto) 9.1 % Eosinophils (%) (Auto) 0.8 % Basophils (%) (Auto) 0.4 % Neutrophils # (Auto) 4.1 TH/MM3 Lymphocytes # (Auto) 1.2 TH/MM3 Monocytes # (Auto) 0.5 TH/MM3 Eosinophils # (Auto) 0.0 TH/MM3 Basophils # (Auto) 0.0 TH/MM3 CBC Comment DIFF FINAL Differential Comment Sodium Level 141 MEQ/L Potassium Level 3.3 MEQ/L Chloride Level 103 MEQ/L Carbon Dioxide Level 31.4 MEQ/L Anion Gap 7 MEQ/L Blood Urea Nitrogen 16 MG/DL Creatinine 0.83 MG/DL Estimat Glomerular Filtration 79 ML/MIN Rate Random Glucose 109 MG/DL Calcium Level 9.0 MG/DL Total Creatine Kinase 692 U/L Creatine Kinase MB 7.4 NG/ML Creatine Kinase MB % 1.1 % Urine Color LIGHT-YELLOW Urine Turbidity CLEAR Urine pH 6.5 Urine Specific [place] 1.012 Urine Protein NEG mg/dL Urine Glucose (UA) TRACE mg/dL Urine Ketones 10 mg/dL Urine Occult Blood NEG Urine Nitrite NEG Urine Bilirubin NEG Urine Urobilinogen LESS THAN 2.0 MG/DL Urine Leukocyte Esterase NEG Urine RBC 1 /hpf Urine WBC LESS THAN 1 /hpf Urine Squamous Epithelial <1 /hpf Cells Urine Bacteria RARE /hpf Urine Hyaline Casts 2 /lpf Urine Mucus FEW /lpf Microscopic Urinalysis Comment CULT NOT INDICATED MDM Medical Decision Making Medical Screen Exam Complete: Yes Emergency Medical Condition: Yes Interpretation(s) EKG: NSR 63bpm. Normal axis. TWI V3-V6. Unchanged from prior. Differential Diagnosis rhabdomyolysis vs. arrhythmia vs. UTI vs. contusion vs. fracture Narrative Course 86yo F who questionable dementia who lives by herself with aid coming in the morning here for evaluation after a fall. As per the aid that started last week , pt has had 2 falls and was evaluated here on 01/06/17. Pt does not take medications and has a neighbor that helps out. Pt's son Mr. Augusto Pickett [phone], lives in [place]. Pt's friend states all her medications are but she is here to help. Labs reviewed, no leukocytosis. CPK elevated at 692, given NS 500cc IVF. Creatinine normal. K: 3.3, replaced orally. UA negative. Xray LS showed no fracture. Pt does not have midline tenderness to lumbar spine so MRI not clinically indicated. I discussed with her son by phone and informed him that pt needs a higher level of care and he is looking into a fpc but is trying to work out the finances. BP was 226/95 and after 10mg IV hydralazine, BP improved to 185/79. I discussed with cyanide case hardener and pt do not meet inpatient admission criteria. Will order physician discharge referral for home health care. Pt denies any complaints. Diagnosis Primary Impression: Fall Qualified Code: W19.XXXA - Fall, initial encounter Patient Instructions: General Instructions Departure Forms: Tests/Procedures Additional Instructions: Please follow up with your PMD in 1-2 days. Return to the ED if symptoms worsen. Med/Other Pt SpecificInfo: Prescription(s) given Scripts Amlodipine 5 Mg Tab5 Mg PO DAILY #30 TAB Ref 0 Prov:Kasandra Vergara 01/10/17 Disposition: 01 DISCHARGE HOME Condition: Stable UrsulaKasandra DO Jan 10, 2017 09:26
[2017-01-10] MEDS ORDERED: hydrALAZINE HCL 20 MG/ML VIAL IV PUSH ONE (09:30)
[2017-01-10 09:59] LABS: AUTOMATED NEUTROPHIL # 4.1 TH/MM3 (1.8-7.7); BASOPHIL % 0.4 % (0.0-2.0); EOSINOPHIL % 0.8 % (0.0-4.0); HEMATOCRIT 39.6 % (35.0-46.0); HEMO FLAGS DIFF FINAL; LYMPH % 20.3 % (9.0-44.0); LYMPHOCYTE # 1.2 TH/MM3 (1.0-4.8); MEAN CELL VOLUME 92.1 FL (80.0-100.0); MEAN CORPUSCULAR HEMOGLOBIN 29.7 PG (27.0-34.0); MEAN CORPUSCULAR HGB CONC 32.3 % (32.0-36.0); MONO % 9.1 % (0.0-8.0); NEUT % 69.4 % (16.0-70.0); PLATELET COUNT 237 TH/MM3 (150-450); RED CELL DISTRIBUTION WIDTH 13.2 % (11.6-17.2); WHITE BLOOD COUNT 5.9 TH/MM3 (4.0-11.0)
[2017-01-10 10:17] LABS: BICARBONATE 31.4 MEQ/L (21.0-32.0); POTASSIUM 3.3 MEQ/L (3.5-5.1)
[2017-01-10 10:28] VITALS: BP 185/79; PULSE 65; RESP 16; O2SAT 97
[2017-01-10] MEDS ORDERED: SODIUM CHLORID 0.9% 500 ML INJ 500 ML IV ONE (10:30)
[2017-01-10 10:34] LABS: CKMB 7.4 NG/ML (0.5-3.6)
[2017-01-10 11:02] LABS: BACTERIA, URINE RARE /hpf; BLOOD, URINE NEG (NEG); COMMENT (UR) CULT NOT INDICATED; CULTURE IF INDICATED CULT NOT INDICATED; GLUCOSE,URINE TRACE mg/dL (NEG); HYALINE CAST, URINE 2 /lpf (RARE); KETONE, URINE 10 mg/dL (NEG); MUCUS URINE FEW /lpf (OCC); NITRITE,URINE NEG (NEG); PH, URINE 6.5 (5.0-8.5); SQUAMOUS EPITHELIAL CELL URINE <1 /hpf (0-5); URINE COLOR LIGHT-YELLOW (YELLW/STRAW)
[2017-01-10] MEDS ORDERED: POTASSIUM CHLORIDE 20 MEQ CONTROLLED RELEASE TAB PO ONE (11:15)
[2017-01-10 11:40] VITALS: BP 180/84; PULSE 101; RESP 17; O2SAT 99
--- NOTE | 2017-01-10 12:26 | RADRPT ---
EXAM DATE/TIME: 01/10/2017 10:20 [facility] COMPARISON: SPINE LUMBAR LTD (AP & LAT), July 03, 2014, 11:50. INDICATIONS : Lower back pain, fall out of chair. MEDICAL HISTORY : None. SURGICAL HISTORY : None. ENCOUNTER: Initial ACUITY: 1 day PAIN SCORE: 7/10 LOCATION: Left lower back FINDINGS: Two view examination was performed. There are five non-rib bearing vertebral bodies. The vertebral bodies are in normal alignment without evidence of subluxation or scoliosis. The disc spaces are isrrael ntained. The pedicles are intact. Bony mineralization is normal. No fracture is identified. CONCLUSION: Negative, MRI could be more sensitive for subtle compression if clinically indicated. Trenton Mitchell MD FACR on January 10, 2017 at 12:24 Board Certified Radiologist. This report was verified electronically.
[2017-01-10] MEDS ORDERED: AMLO5TAB2 PO (12:59)
--- NOTE | 2017-01-10 13:04 | HHI.FF ---
Face to Face Verification Diagnosis: (1) Hypertension Home Health Nursing Order: Medical education Signs/symptoms of disease process Home Health Aide Instructions: Medication administration I have seen patient Naomy Pickett on 01/10/17. My clinical findings support the need for the requested home health care services because: Limited ability to care for self High risk of falls I certify that my clinical findings support that this patient is homebound because: Impaired cognitive ability/safety Kasandra Vergara DO Jan 10, 2017 13:04
[2017-01-10 15:00] VITALS: BP 172/86
--- NOTE | 2017-01-11 15:43 | EKG ---
Date Performed: 01/10/2017 Time Performed: 09:17:00 PTAGE: 86 years EKG: Sinus rhythm WITH SINUS ARRHYTHMIA MODERATE T-WAVE ABNORMALITY, CONSIDER ANTEROLATERAL ISCHEMIA Baseline artifact . Likely no significant change. ABNORMAL ECG PREVIOUS TRACING : 01/06/2017 13.59 DOCTOR: Jocelyn Vila Interpretating Date/Time 01/11/2017 15:42:06
== END 2017-01-10 15:08 | disposition home or self-care (01) ==
LOC: NEPD 08:52
DX: M54.5 Low back pain (principal); W07.XXXA Fall from chair, initial encounter; G20 Parkinson's disease; F03.90 Unspecified dementia, unspecified severity, without behavioral disturbance, psychotic disturbance, mood disturbance, and anxiety; I10 Essential (primary) hypertension; J44.9 Chronic obstructive pulmonary disease, unspecified; Z86.73 Personal history of transient ischemic attack (TIA), and cerebral infarction without residual deficits
CPT/HCPCS: 72100; 80048; 81001; 82550; 82552; 85025; 93005; 96374; 99285; J0360; J7040